=== PATIENT | female | born 1985 | race Two or more races ===

== ENCOUNTER 2024-02-21 15:19 | Emergency (ER) | payer SELFPAY ==
[2024-02-21 15:23] VITALS: BP 156/104; BMI 22.8
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
[2024-02-21 16:00] VITALS: BP 161/104
== END 2024-02-21 17:39 ==
LOC: EMR 15:19
PROVIDERS: EMERGENCY PHYSICIAN Student in an Organized Health Care Education/Training Program
DX: T76.21XA Adult sexual abuse, suspected, initial encounter (principal); Y04.8XXA Assault by other bodily force, initial encounter; F17.200 Nicotine dependence, unspecified, uncomplicated; I10 Essential (primary) hypertension
CPT/HCPCS: 99285